=== PATIENT | female | born 1980 | race Caucasian/White ===

== ENCOUNTER 2022-09-20 11:53 | Emergency (ER) | payer BC, MEDICAID, SELFPAY ==
[2022-09-20 12:16] VITALS: BP 105/72; PULSE 90; RESP 16; TEMP 37.7; O2SAT 99
== END 2022-09-20 13:12 | disposition left against medical advice (07) ==
LOC: EXPBETH 12:00
PROVIDERS: Emergency Provider Registered Nurse; PCP Internal Medicine
DX: Z53.21 Procedure and treatment not carried out due to patient leaving prior to being seen by health care provider (principal)
CPT/HCPCS: 99199